=== PATIENT | male | born 1970 | race Caucasian/White ===

== ENCOUNTER 2020-05-29 12:06 | Inpatient (IN) | payer OTHER ==
[~2020-05-29] VITALS: Ht 162.6 cm; Wt 73.6 kg
--- NOTE | ~2020-05-29 | HEMODYNAMI ---
PATIENT:EVENS MASTERS MEDICAL RECORD: [id number] : 66 [facility] AD[facility] DATE: 05/30/20 Generatedon:06/01/20209:58 Patient name: EVENS MASTERS Patient #: [id number] SSN: [id number] : 1970 Date of study: 06/01/2020 Page: Of Hemodynamic Procedure Report Patient Data Patient Demographics Procedure consent was obtained First Name: EVENS Gender: Male Last Name: GUERRERO : 1970 Patient #: [id number] Age: 49 year(s) Race: SSN: [id number] Additional ID: [id number] Contact details [address]: [address] [place] [address] ln State: [place] City: [place] Zip code: [address] Past Medical History Allergies: No known allergies Admission Admission Data Admission Date: 05/30/2020 Admission Time: 8:49 Admit Source: Emergency department Room #: D.2119 Lab Results Lab Result Date: 06/01/2020 Lab Result Time: 5:25 Biochemistry Name Units Result Min Max BUN mg/dl 8 --(*---)-- 7 18 Creatinine mg/dl 1 --(--*-)-- 0.6 1.3 eGFR ml/min 84 -*(----)-- 90 120 NONAFRICAN CBC Name Units Result Min Max Hematocrit % 34.6 *-(----)-- 42 54 Hemoglobin g/dl 11.2 *-(----)-- 13.5 17.5 Procedure Procedure Types Cath Procedure Diagnostic Procedure Sedation Charges Moderate Sedation up to 15 minutes PCI Procedure Coronary Stent Coronary Stent Initial Hemochron ACT Test Procedure Description Procedure Date Procedure Date: 06/01/2020 Procedure Start Time: 9:32 Procedure End Time: 9:45 Procedure Staff Name Function Cielo Lizama RN Nurse Jim Haider RT Monitor Alka Nobles RT Scrub Lisha Posada RT Lead Care Manager Indio Sims MD Performing Physician Procedure Data Cath Procedure Fluoroscopy Diagnostic fluoroscopy Total fluoroscopy Time: 2 time: 2 min min Diagnostic fluoroscopy Total fluoroscopy dose: 184 dose: 184 mGy mGy Contrast Material Contrast Material Type Amount (ml) Isovue 300 39 Entry Location Entry Primary Successful Side Size Upsize Upsize Entry Closure Succes sful Closure Location (Fr) 1 (Fr) 2 (Fr) Remarks Device Remarks Femoral Left 6 Fr Exoseal artery Short Estimated blood loss: 10 ml Procedure Complications No complications Procedure Medications Medication Administration Route Dosage Oxygen etCO2 Nasal cannula 2 l/min Heparin Flush Bag added to field 2 bags (1000units/500ml NS) Lidocaine 2% added to field 20 0.9% NaCl I.V. 100 ml/hr Fentanyl I.V. 50 mcg Versed I.V. 1 mg Heparin Bolus I.V. 4000 units Hemodynamics Rest HGB: 11.2 (g/dl) Heart Rate: 75 (bpm) Snapshots Pre Cath Intra NCS Post Cath Vital Signs Time Heart Resp SPO2 etCO2 NIBP Rhythm Pain Sedation Rate (ipm) (%) (mmHg) (mmHg) Status Level (bpm) 9:21:24 76 18 100 17.2 129/79(99) NSR 0 (11) 10(A) , No pain 9:25:36 77 26 94 30.6 111/77(92) NSR 0 (11) 10(A) , No pain 9:29:50 79 26 96 21.6 109/71(89) NSR 0 (11) 10(A) , No pain 9:34:04 75 16 98 33.7 123/72(92) NSR 0 (11) 9(A) , No pain 9:38:18 82 21 93 35.9 116/69(88) NSR 0 (11) 9(A) , No pain 9:42:29 81 22 96 29.9 110/73(87) NSR 0 (11) 9(A) , No pain Medications Time Medication Route Dose Verified Delivered Reason Notes Effectiveness by by 9:02:28 Oxygen etCO2 2 Cielo Cielo for low 02 sats Nasal l/min Alda Lizama, cannula RN RN 9:02:37 Heparin Flush added 2 Cielo Cielo used for Bag to bags Alda Lizama, procedure (1000units/500ml field RN RN NS) 9:02:46 Lidocaine 2% added 20ml Cielo Cielo for local to vial Alda Lizama, anesthetic field RN RN 9:03:01 0.9% NaCl I.V. 100 Cielo Cielo Per physician ml/hr Alda Lizama, TAMMY MUNOZ 9:31:27 Fentanyl I.V. 50 Cielo Cielo for sedation mcg Alda Lizama RN RN 9:31:35 Versed I.V. 1 mg Cielo Cielo for sedation Alda Lizama, TAMMY MUNOZ 9:37:17 Heparin Bolus I.V. 4000 Cielo Cielo for verifi ed w units Alda Lizama, anticoagulation showell,rn RN oil gauger Log Time Note 8:34:37 Informed consent obtained and on chart 9:02:28 Oxygen 2 l/min etCO2 Nasal cannula was administered by Cielo Lizama RN; for low 02 sats; Verbal order read back and verified. 9:02:37 Heparin Flush Bag (1000units/500ml NS) 2 bags added to field was administered by Cielo Lizama RN; used for procedure; Verbal order read back and verified. 9:02:41 Diagnostic Cath Status : Urgent 9:02:46 Lidocaine 2% 20ml vial added to field was administered by Cielo Lizama RN; for local anesthetic; Verbal order read back and verified. 9:03:01 0.9% NaCl 100 ml/hr I.V. was administered by Cielo Lizama RN; Per physician; Verbal order read back and verified. 9:03:44 Lab Result : Hemoglobin 11.2 g/dl 9:03:44 Lab Result : Hematocrit 34.6 % 9:03:44 Lab Result : eGFR NONAFRICAN 84 ml/min 9:03:44 Lab Result : BUN 8 mg/dl 9:03:44 Lab Result : Creatinine 1 mg/dl 9:03:49 Admit Source: Emergency department 9:03:53 ACC Patient presents with Unstable Angina CCS Anginal Class 2--Slight limitation of ordinary activity. 9:03:57 Procedure Status PCI. 9:04:01 Alka Nobles RT(R) (CV) sent for patient. Start room use. 9:04:02 Time tracking: Regular hours (M-F 7:00 - 5:00) 9:04:06 Plan of Care:Hemodynamics will remain stable., Cardiac rhythm will remain stable., Comfort level will be maintained., Respiratory function will remain adequate., Patient/ family verbilizes understanding of procedure., Procedure tolerated without complication., Recovers from procedure without complications.. 9:12:55 Patient received from Med II to CCL 1 Alert and oriented. Tansferred to table in Supine position. 9:12:57 Warm blankets applied, and gardenia hugger turned on for patient comfort. 9:12:57 Correct patient and procedure confirmed by team. 9:12:58 ECG and BP/O2 sat monitors applied to patient. 9:13:07 H&P Date Dictated: 05/31/2020 Within 30 days and on chart., H&P Addendum completed by physician on day of procedure. (MUST COMPLETE FOR ALL OUTPATIENTS). 9:13:09 Pre-procedure instructions explained to patient. 9:13:09 Pre-op teaching completed and patient verbalized understanding. 9:13:10 Family in patients room. 9:13:12 Patient NPO since Midnight. 9:13:20 Patient allergic to No known allergies 9:13:25 Is patient on blood thinner?Yes 9:13:28 ACC The patient was administered the following blood thiners within the last 24 hours: ACCPlavix 9:14:17 Patient diabetic? No. 9:14:20 Previous problem with sedation/anesthesia? No ? 9:14:21 Snore? Yes 9:14:22 Sleep apnea? Yes 9:14:23 Deviated septum? No 9:14:23 Opens mouth fully? Yes 9:14:24 Sticks out tongue? Yes 9:14:26 Airway obstruction? No ? 9:14:27 Dentures? No ? 9:14:31 Pre procedure: left dorsailis pedis pulse 2+ Normal; easily identifiable; not easily obliterated 9:14:34 Patient pain scale 0/10 ?. 9:14:38 IV patent on arrival in right hand with 0.9% NaCl at KVO. 9:14:40 Lab results completed and on chart. 9:20:02 Stress Test: no; N/A ? 9:20:04 Alarms reviewed by R. N. 9:20:04 Sharps counted by scrub and verified by R.N. 9:20:10 Left groin area was prepped with chlora-prep and draped in sterile fashion 9:20:18 Vital chart was started 9:20:19 Full Disclosure recording started 9:20:20 Baseline sample Acquired. 9:20:23 Rhythm: sinus rhythm 9:20:29 Is the patient allergic to Iodine/contrast media? No. 9:20:32 Was the patient premedicated? N/A 9:20:35 If diabetic: On Metformin? N/A 9:20:42 Use device set Femoral Dx 9:20:43 ACIST Syringe (20499) opened to sterile field. 9:20:44 Bag Decanter (2002S) opened to sterile field. 9:20:45 Medline Cath Pack ([id number]) opened to sterile field. 9:20:46 ACIST Hand Control (33233) opened to sterile field. 9:20:46 ACIST Manifold (60267) opened to sterile field. 9:20:48 EMERALD Guide Wire (371-252) opened to sterile field. 9:30:01 Physician arrived 9:30:01 --------ALL STOP TIME OUT------ 9:30:02 Final Timeout: patient, procedure, and site verified with staff and physician. All members of the team are in agreement. 9:30:03 Left groin site verified by team. 9:30:05 Fire Safety Assessment: A--An alcohol-based skin anteseptic being used preoperatively., C--Open oxygen or nitrous oxide is being used., D--An ESU, laser, or fiber-optic light is being used. 9:30:10 Physical assessment completed. ASA score P 2 - A patient with mild systemic disease as per Indio Sims MD. 9:30:21 2) 60-89 Mildly reduced kidney function, and other findings (as for stage 1) point to kidney disease. 9:30:26 Maximum allowable contrast dose (3.7 X eGFR X 0.75)246 ml. 9:30:29 Sedation plan: IV Moderate Sedation Medication:Versed, Fentanyl 9:31:27 Fentanyl 50 mcg I.V. was administered by Cielo Lizama RN; for sedation; Verbal order read back and verified. 9:31:35 Versed 1 mg I.V. was administered by Cielo Lizama RN; for sedation; Verbal order read back and verified. 9:32:43 Procedure started. 9:32:48 Local anesthetic to left femerol artery with Lidocaine 2% by Indio Sims MD.INITIAL ACCESS ONLY 9:33:08 A 6 Fr Short sheath was inserted into the Left Femoral artery 9:34:06 Asahi Minamo 300cm wire opened to sterile field. 9:34:06 INFLATOR Merit BasixCompak (HH2358) opened to sterile field. 9:34:07 SHEATH 6FR [place] (AVU247) opened to sterile field. 9:34:08 Zero performed for pressure channel P1 9:34:11 Zero performed for pressure channel P1 9:34:21 GUIDE 6FR XBLAD 3.5 catheter ([id number]) opened to sterile field. 9:34:32 6 Fr xblad 3.5 guide catheter was inserted over the wire 9:34:54 Pre PCI Site: [place] pLAD has 80% stenosis. 9:34:57 ACC Pre-intervention MARYURI Flow is 3. 9:36:45 minamo wire advanced. 9:37:17 Heparin Bolus 4000 units I.V. was administered by Cielo Lizama RN; for anticoagulation; verified nigel licea rn Verbal order read back and verified. 9:37:32 Wire advanced across lesion. 9:39:52 Place stent Inflation Number: 1 A COLE RX 3.5 x 18 stent ([id number]) was prepped and advanced across the Prox LAD . The stent was deployed at 14 ANGIE for 0:10 (min:sec) . 9:40:19 Post PCI Site: Zuni pLAD has 0% stenosis. 9:40:35 ACC Post-intervention MARYURI Flow is 3. 9:41:14 Stent catheter was removed intact over wire. 9:41:15 Wire removed. 9:41:15 Guide catheter removed. 9:41:21 EXOSEAL 6Fr (EX600) opened to sterile field. 9:41:28 Sheath removed intact; hemostasis achieved with Exoseal to the Left Femoral artery. 9:41:30 Procedure ended.(Physican Out) 9:43:22 Fluoroscopy time 02.00 minutes. 9:43:25 Flurop Dose total: 184 9:43:25 Fluoroscopy dose: 184 mGy 9:43:29 Dose Area Product 7270 mGy/cm. 9:43:32 Contrast amount:Isovue 300 39ml. 9:43:35 Maximum allowable dose exceeded? No. 9:43:35 Sharps counted by scrub and verified by R.N. 9:43:37 Insertion/operative site no bleeding no hematoma. 9:43:39 Post-op/insertion site Left Femoral artery dressed using a 4 x 4 and Tegaderm. 9:43:43 Post left femerol artery:stable, soft, clean and dry 9:43:44 Post Procedure Pulses reassessed and unchanged 9:43:46 Post-procedure physical assessment completed. ASA score P 2 - A patient with mild systemic disease as per Indio Sims MD. 9:43:57 Post procedure rhythm: unchanged. 9:44:00 Estimated blood loss: 10 ml 9:44:01 Post procedure instruction explained to patient.Patient verbalizes understanding. 9:44:01 Patient needs reinforcement of post procedure teaching. 9:44:20 Procedure type changed to Cath procedure, Diagnostic procedure, Sedation Charges, Moderate Sedation up to 15 minutes, PCI procedure, Coronary Stent, Coronary Stent Initial, Hemochron ACT Test 9:45:22 Procedure and supply charges have been captured, reviewed, submitted and are correct. 9:45:24 Procedure Complication : No complications 9:45:26 Vital chart was stopped 9:45:29 Operative report dictated upon procedure completion. 9:45:30 See physician's report for complete and final results. 9:45:32 Report given to PCU. 9:45:35 Patient transfered to PCU with Stretcher. 9:45:36 Procedure ended. 9:45:36 Full Disclosure recording stopped 9:45:43 ACC-PCI Only Patient was given prescriptions, or instructed by Indio Sims MD to start/continue the following medications upon discharge: Aspirin, Plavix 9:45:46 End room use (Document Last) 9:47:44 Wire redirected to ?. 9:49:12 ACT drawn and resulted at 194 seconds. (normal therapeutic range 180-240 seconds). 9:57:44 Jim Haider RT(R) was relieved by Jim Haider RT(R) as monitoring person 9:58:33 Jim Haider RT(R) was relieved by Jim Haider RT(R) as monitoring person Intervention Summary Intervention Notes Time ActionType Lesion and Equipment Used Action# Pressure Duration Attributes 9:39:52 Place stent Prox LAD COLE RX 3.5 x 1 14 00:10 18 stent ([id number]) Device Usage Item Name Manufacture Quantity Catalog Hospital Part Current [facility] Lot# / Number Charge Number Stock Stock Serial# Code ACIST Syringe Acist 1 [id number] 733682 512129 20 (18315) [employer] Bag Decanter Microtek 1 2001S [id number] 93341 555222 5 (2001S) Medical Inc. Medline Cath Medline 1 [id number] 881043 03241 072597 5 Pack ([id number]) ACIST Hand Acist 1 85697 430770 034135 551746 5 Control Medical (50764) Systems Inc ACIST Manifold Acist 1 49699 795440 256126 186550 5 (47612) [employer] EMERALD Guide Cardinal 1 502-455 490040 225057 953143 5 Wire (502-455) [facility] Intecc 1 [id number] 115486 0429055 666867 0 300cm wire INFLATOR Merit Merit 1 [id number] 046476 342124 106430 15 Medtric [employer] Medical ([id number]) SHEATH 6FR Terumo 1 [id number] 193922 783529 453219 40 [place] (WNV686) GUIDE 6FR Cardinal 1 [id number] 233505 314619 927543 10 XBLAD 3.5 Health catheter ([id number]) COLE RX 3.5 x Medtronic 1 [id number] 035887 0668307 939794 5 [id number] 18 stent ([id number]) EXOSEAL 6Fr Cardinal 1 EX600 674992 336064 803087 10 (EX600) Health Signature Audit [place] Stage Time Signature Unsigned Intra-Procedure 06/01/2020 Jim Haider 9:57:25 AM RT(R) Intra-Procedure 06/01/2020 Cielo Lizama, 9:58:27 AM RN Intra-Procedure 06/01/2020 Indio Louise 9:58:57 AM Augusto JURADO [facility] [address] [facility] [place] [address]
--- NOTE | ~2020-05-29 | HEMODYNAMI ---
PATIENT:EVENS MASTERS MEDICAL RECORD: [id number] : 66 LOCATION:[facility] D.2119 ADMISSION DATE: 05/29/20 Generatedon:05/30/20203:14 Patient name: EVENS MASTERS Patient #: [id number] SSN: [id number] : 1970 Date of study: 05/30/2020 Page: Of Hemodynamic Procedure Report Patient Data Patient Demographics Procedure consent was obtained First Name: EVENS Gender: Male Last Name: GUERRERO : 1970 Patient #: [id number] Age: 49 year(s) Race: SSN: [id number] Additional ID: [id number] Contact details [address]: [address] [place] [address] ln State: [place] City: [place] Zip code: [address] Admission Admission Data Admission Date: 05/29/2020 Admission Time: 15:05 Room #: D.2119 Lab Results Lab Result Date: 05/30/2020 Lab Result Time: 0:00 Biochemistry Name Units Result Min Max BUN mg/dl 13 --(--*-)-- 7 18 CK-MB ng/ml 103.8 --(----)-* 0 3.6 Creatinine mg/dl 1.2 --(---*)-- 0.6 1.3 eGFR ml/min 67.35434 *-(----)-- 90 120 NONAFRICAN Troponin l ng/ml 10.894 --(----)-* 0 0.06 CBC Name Units Result Min Max Hematocrit % 32.4 *-(----)-- 42 54 Hemoglobin g/dl 10.6 *-(----)-- 13.5 17.5 Procedure Procedure Types Cath Procedure Diagnostic Procedure LHC Coronaries only PCI Procedure Coronary Stent Coronary Stent Initial Hemochron ACT Test Procedure Description Procedure Date Procedure Date: 05/30/2020 Procedure Start Time: 2:35 Procedure End Time: 3:10 Procedure Staff Name Function Taylor Bunch RT Monitor Buffie Yu RN Nurse Renny Erickson MD Performing Physician Maru Yeh RT Scrub Procedure Data Cath Procedure Fluoroscopy Diagnostic fluoroscopy Total fluoroscopy Time: 6.1 time: 6.1 min min Diagnostic fluoroscopy Total fluoroscopy dose: dose: 99520 mGy 68586 mGy Contrast Material Contrast Material Type Amount (ml) Isovue 300 86 Entry Location Entry Primary Successful Side Size Upsize Upsize Entry Closure Succes sful Closure Location (Fr) 1 (Fr) 2 (Fr) Remarks Device Remarks Femoral Right 6 Fr artery Short Femoral Right 6 Fr Exoseal vein Short Estimated blood loss: 5 ml Procedure Complications No complications Procedure Medications Medication Administration Route Dosage Dopamine I.V. drip 7.5 mcg/kg/min (400mg/250ml D5W) Oxygen etCO2 Nasal cannula 2 l/min Lidocaine 2% added to field 20 0.9% NaCl I.V. bolus 250 ml Heparin Flush Bag added to field 2 bags (1000units/500ml NS) Heparin Bolus I.V. 7000 units Dopamine I.V. drip 5 mcg/kg/min (400mg/250ml D5W) Nitroglycerin IC/IA I.C. 50 mcg Dopamine I.V. drip 2.5 mcg/kg/min (400mg/250ml D5W) Plavix P.O. 600 mg Dopamine I.V. drip (400mg/250ml D5W) Hemodynamics Rest HGB: 10.6 (g/dl) Heart Rate: 65 (bpm) Snapshots Pre Cath Intra NCS Post Cath Vital Signs Time Heart Resp SPO2 etCO2 NIBP (mmHg) Rhythm Pain Status Sedation Rate (ipm) (%) (mmHg) Level (bpm) 2:29:20 55 12 100 23.4 87/54(73) NSR 4 (11) , 10(A) Distressing 2:33:32 55 13 100 18.1 85/50(76) NSR 4 (11) , 10(A) Distressing 2:37:40 57 13 100 22.6 86/55(76) NSR 4 (11) , 10(A) Distressing 2:41:48 84 14 100 21.8 101/61(79) NSR 4 (11) , 10(A) Distressing 2:46:51 74 14 100 23.3 163/82(123) NSR 4 (11) , 10(A) Distressing 2:51:11 82 18 100 14.3 141/79(99) NSR 4 (11) , 10(A) Distressing 2:55:23 82 17 100 24.1 112/67(82) NSR 0 (11) , No 10(A) pain 2:59:35 85 15 100 21.1 128/75(97) NSR 0 (11) , No 10(A) pain 3:03:53 84 13 100 23.3 133/74(101) NSR 0 (11) , No 10(A) pain 3:08:13 84 12 100 18.8 135/69(105) NSR 0 (11) , No 10(A) pain Medications Time Medication Route Dose Verified Delivered Reason Notes Effectiveness by by 2:33:42 Dopamine I.V. 7.5 Renny Buffie For hypotension (400mg/250ml drip mcg/kg/min Dre Yu RN D5W) 2:34:05 Oxygen etCO2 2 l/min Renny Buffie used for Nasal Der Yu RN procedure cannula 2:34:11 Lidocaine 2% added 20ml vial Renny Renny for local to Dre Erickson MD anesthetic field 2:34:19 0.9% NaCl I.V. 250 ml Renny Buffie Per physician bolus Dre Yu RN 2:36:03 Heparin Flush added 2 bags Renny Renny used for Bag to Dre Erickson MD procedure (1000units/500ml field NS) 2:45:20 Heparin Bolus I.V. 7000 units Renny Buffie for verified Dre Yu RN anticoagulation with dr erickson 2:48:57 Dopamine I.V. 5 mcg/kg/min Renny Buffie For hypotension (400mg/250ml drip Dre Yu RN D5W) 2:53:49 Nitroglycerin I.C. 50 mcg Renny Renny for IC/IA Dre Erickson MD vasodilation 3:01:52 Dopamine I.V. 2.5 Renny Buffie For hypotension (400mg/250ml drip mcg/kg/min Dre Yu RN D5W) 3:10:04 Plavix P.O. 600 mg Renny Buffie for Dre Yu RN antiplatelet therapy 3:11:08 Dopamine I.V. discontinued Renny Buffie For hypotension (400mg/250ml drip Dre Yu RN D5W) Procedure Log Time Note 2:15:21 Taylor Julio C RT(R) sent for patient. Start room use. 2:18:37 Informed consent obtained and on chart 2:18:47 Diagnostic Cath Status : Urgent 2:19:15 ACC Patient presents with STEMI CCS Anginal Class 2--Slight limitation of ordinary activity. 2:19:18 Procedure Status Urgent Heart Cath (IP). 2:19:29 Time tracking: Call back (After hours or weekends) 2:19:34 Plan of Care:Hemodynamics will remain stable., Cardiac rhythm will remain stable., Comfort level will be maintained., Respiratory function will remain adequate., Patient/ family verbilizes understanding of procedure., Procedure tolerated without complication., Recovers from procedure without complications.. 2:19:44 H&P Date Dictated: 05/29/2020 Within 30 days and on chart.. 2:19:46 Pre-op teaching completed and patient verbalized understanding. 2:19:46 Pre-procedure instructions explained to patient. 2:19:48 Family unavailable. 2:19:49 Patient NPO since Midnight. 2:20:27 Lab Result : eGFR NONAFRICAN 67.87053 ml/min 2:20:27 Lab Result : Hemoglobin 10.6 g/dl 2:20:27 Lab Result : Hematocrit 32.4 % 2:20:27 Lab Result : Troponin l 10.894 ng/ml 2:20:27 Lab Result : BUN 13 mg/dl 2:20:27 Lab Result : Creatinine 1.2 mg/dl 2:20:27 Lab Result : CK-MB 103.8 ng/ml 2:20:31 Lab results completed and on chart. 2:20:34 Stress Test: no; N/A ? 2:20:39 Risk of Mortality: 1.8 2:20:42 Risk of blood transfusion: 12.6 2:20:45 Risk of ROSALIA: 7.1 2:20:48 Right groin area was prepped with chlora-prep and draped in sterile fashion 2:25:19 Patient received from Med II to CCL 1 Alert and oriented. Tansferred to table in Supine position. 2:25:21 ECG and BP/O2 sat monitors applied to patient. 2:25:21 Correct patient and procedure confirmed by team. 2:25:21 Warm blankets applied, and gardenia hugger turned on for patient comfort. 2:28:05 Vital chart was started 2:31:10 Is the patient allergic to Iodine/contrast media? No. 2:31:11 Was the patient premedicated? Yes 2:31:15 Is patient on blood thinner?Yes 2:31:16 Patient diabetic? No. 2:31:29 Is patient on blood thinner?Yes 2:31:35 ACC The patient was administered the following blood thiners within the last 24 hours: ACCLovenox 2:31:40 Previous problem with sedation/anesthesia? No ? 2:31:42 Snore? Yes 2:31:44 Sleep apnea? Yes 2:31:47 Deviated septum? No 2:31:49 Opens mouth fully? Yes 2:31:50 Sticks out tongue? Yes 2:31:52 Airway obstruction? No ? 2:31:55 Dentures? No ? 2:31:58 Pre procedure: right dorsailis pedis pulse 2+ Normal; easily identifiable; not easily obliterated 2:32:00 Pre procedure: left dorsailis pedis pulse 2+ Normal; easily identifiable; not easily obliterated 2:32:06 Patient pain scale 5/10 ?. 2:32:55 IV patent on arrival in left forearm with 0.9% NaCl at KVO. 2:33:01 Alarms reviewed by R. N. 2:33:02 Sharps counted by scrub and verified by R.N. 2:33:03 Final Timeout: patient, procedure, and site verified with staff and physician. All members of the team are in agreement. 2:33:03 --------ALL STOP TIME OUT------ 2:33:03 Physician arrived 2:33:06 Right groin site verified by team. 2:33:10 Fire Safety Assessment: A--An alcohol-based skin anteseptic being used preoperatively., C--Open oxygen or nitrous oxide is being used., D--An ESU, laser, or fiber-optic light is being used. 2:33:13 Physical assessment completed. ASA score P 2 - A patient with mild systemic disease as per Renny Erickson MD. 2:33:31 IV Extension Set opened to sterile field. 2:33:42 Dopamine (400mg/250ml D5W) 7.5 mcg/kg/min I.V. drip was administered by Osiel Yu RN; For hypotension; Verbal order read back and verified. 2:34:05 Oxygen 2 l/min etCO2 Nasal cannula was administered by Osiel Yu RN; used for procedure; Verbal order read back and verified. 2:34:11 Lidocaine 2% 20ml vial added to field was administered by Renny Erickson MD; for local anesthetic; Verbal order read back and verified. 2:34:19 Sedation plan: IV Moderate Sedation Medication:Versed, Fentanyl 2:34:19 0.9% NaCl 250 ml I.V. bolus was administered by Osiel Yu RN; Per physician; Verbal order read back and verified. 2:34:28 2) 60-89 Mildly reduced kidney function, and other findings (as for stage 1) point to kidney disease. 2:34:48 Maximum allowable contrast dose (3.7 X eGFR X 0.75)189 ml. 2:34:54 Use device set CATH PACK 2:34:57 ACIST Syringe (06033) opened to sterile field. 2:34:58 ACIST Manifold (89435) opened to sterile field. 2:34:58 ACIST Hand Control (95900) opened to sterile field. 2:34:59 Bag Decanter (2001S) opened to sterile field. 2:34:59 Medline Cath Pack ([id number]) opened to sterile field. 2:35:00 EMERALD Guide Wire (198-794) opened to sterile field. 2:35:14 Full Disclosure recording started 2:35:14 Procedure started. 2:35:17 Local anesthetic to right femoral artery with Lidocaine 2% by Renny Erickson MD.INITIAL ACCESS ONLY 2:35:26 A 6 Fr Short sheath was inserted into the Right Femoral artery 2:35:41 DIAGNOSTIC Multipack 5Fr catheter set ([id number]) opened to sterile field. 2:36:03 Heparin Flush Bag (1000units/500ml NS) 2 bags added to field was administered by Renny Erickson MD; used for procedure; Verbal order read back and verified. 2:38:18 A 6 Fr Short sheath was inserted into the Right Femoral vein 2:38:50 5 Fr JL 4 guide catheter was inserted over the wire 2:39:18 Baseline sample Acquired. 2:39:26 Zero performed for pressure channel P1 2:40:15 LCA angiography performed. 2:40:19 Injector settings: Ml/sec: 3, Volume: 6, 2:41:24 Catheter removed. 2:41:34 5 Fr 3DRC guide catheter was inserted over the wire 2:42:43 RCA angiography performed. 2:42:45 Injector settings: Ml/sec: 3, Volume: 6, 2:42:51 Catheter removed. 2:43:27 TUBING High Pressure Extension Tubing (Dre) ([id number]) opened to sterile field. 2:43:28 GUIDE 6FR JR 4.0 catheter (SU0CO42) opened to sterile field. 2:43:29 BMW 300cm [place] 2 J wire ([id number]) opened to sterile field. 2:43:30 INFLATOR Merit BasixCompak (FY5767) opened to sterile field. 2:45:20 Heparin Bolus 7000 units I.V. was administered by Osiel Yu RN; for anticoagulation; verified with dr erickson Verbal order read back and verified. 2:45:29 5Fr J Tip Temporary Pacing Catheter ([id number]) opened to sterile field. 2:45:30 Pre PCI Site: [place] mRCA has 100% stenosis. 2:45:30 ACC Pre-intervention MARYURI Flow is 2. 2:46:40 Temporary pacer inserted 2:48:57 Dopamine (400mg/250ml D5W) 5 mcg/kg/min I.V. drip was administered by Osiel Yu RN; For hypotension; Verbal order read back and verified. 2:51:07 Inflate balloon Inflation number: 1 A EUPHORA 2.0 x 20 Balloon ([id number]) was prepped and advanced across the Mid RCA 100, then inflated to 12 ANGIE for 0:10 (min:sec) 0. 2:53:49 Nitroglycerin IC/IA 50 mcg I.C. was administered by Renny Erickson MD; for vasodilation; Verbal order read back and verified. 2:56:04 Balloon removed over the wire. 2:58:20 Place stent Inflation Number: 2 A COLE RX 3.0 x 30 stent ([id number]) was prepped and advanced across the Mid RCA 100. The stent was deployed at 13 ANGIE for 0:30 (min:sec) 0. 2:59:49 Inflation number: 3 The stent balloon was then re-inflated across the Mid RCA 0 to 14 ANGIE for 0:10 (min:sec) . 3:01:15 Stent catheter was removed intact over wire. 3:01:21 Wire removed. 3:01:22 Guide catheter removed. 3:01:50 Temporary pacer removed 3:01:52 Dopamine (400mg/250ml D5W) 2.5 mcg/kg/min I.V. drip was administered by Osiel Yu RN; For hypotension; Verbal order read back and verified. 3:02:05 Post PCI Site: [place] mRCA has 0% stenosis. 3:02:08 ACC Post-intervention MARYURI Flow is 3. 3:02:24 EXOSEAL 6Fr (EX600) opened to sterile field. 3:02:34 Sheath removed intact; hemostasis achieved with Exoseal to the Right Femoral vein. 3:02:36 Procedure ended.(Physican Out) 3:05:28 Fluoroscopy time 06.10 minutes. 3:05:34 Fluoroscopy dose: 87127 mGy 3:05:34 Flurop Dose total: 55335 3:06:33 Dose Area Product 85034 mGy/cm. 3:07:19 Contrast amount:Isovue 300 86ml. 3:07:22 Sharps counted by scrub and verified by R.N. 3:07:22 Maximum allowable dose exceeded? No. 3:07:23 Insertion/operative site no bleeding no hematoma. 3:07:26 Post-op/insertion site Right Femoral artery dressed using a 4 x 4 and Tegaderm. 3:08:29 Post Procedure Pulses reassessed and unchanged 3:08:33 Post procedure rhythm: unchanged. 3:08:35 Estimated blood loss: 5 ml 3:08:37 Patient needs reinforcement of post procedure teaching. 3:08:37 Post procedure instruction explained to patient.Patient verbalizes understanding. 3:09:39 Procedure type changed to Cath procedure, Diagnostic procedure, LHC, Coronaries only, PCI procedure, Coronary Stent, Coronary Stent Initial, Hemochron ACT Test 3:09:40 Procedure and supply charges have been captured, reviewed, submitted and are correct. 3:09:44 Procedure Complication : No complications 3:09:47 Vital chart was stopped 3:09:50 [facility] Findings: MVD- PCI performed (see procedure note) 3:09:52 Operative report dictated upon procedure completion. 3:09:53 See physician's report for complete and final results. 3:10:04 Plavix 600 mg P.O. was administered by Osiel Yu RN; for antiplatelet therapy; Verbal order read back and verified. 3:10:17 Report given to [facility] II. 3:10:20 Patient transfered to Med II with Stretcher. 3::21 Full Disclosure recording stopped 3::21 Procedure ended. 3:10:31 ACC-PCI Only Patient was given prescriptions, or instructed by Renny Erickson MD to start/continue the following medications upon discharge: Plavix 3:10:33 End room use (Document Last) 3:10:37 ACT drawn and resulted at 304 seconds. (normal therapeutic range 180-240 seconds). 3:11:08 Dopamine (400mg/250ml D5W) discontinued I.V. drip was administered by Osiel Yu RN; For hypotension; Verbal order read back and verified. 3:11:48 End room use (Document Last) 3:12:04 End room use (Document Last) Intervention Summary Intervention Notes Time ActionType Lesion and Equipment Used Action# Pressure Duration Attributes 2:51:07 Inflate Mid RCA EUPHORA 2.0 x 1 12 00:10 balloon 20 Balloon ([id number]) 2:58:20 Place stent Mid RCA COLE RX 3.0 x 2 13 00:30 30 stent ([id number]) 2:59:49 Reinflate Mid RCA COLE RX 3.0 x 3 14 00:10 stent 30 stent balloon ([id number]) Device Usage Item Name Manufacture Quantity Catalog Hospital Part Current [facility] Lot# / Number Charge Number Stock Stock Serial# Code IV Extension Hospira 1 77390-87 339586 00897 159277 5 Set ACIST Syringe Acist 1 61434 123413 791716 994269 20 (17118) Medical Systems Inc ACIST Hand Acist 1 69516 081465 323453 313384 5 Control Medical (87181) Systems Inc ACIST Manifold Acist 1 68586 110421 004753 308891 5 (37912) Medical Systems Inc Medline Cath Medline 1 [id number] 788342 28347 716883 5 Pack ([id number]) Bag Decanter Microtek 1 2001S 441941 02088 659794 5 () Medical Inc. EMERALD Guide Cardinal 1 502-455 976965 214395 882867 5 Wire (502-455) Health DIAGNOSTIC Cardinal 1 TX4457 287118 61935 864502 30 Multipack 5Fr Health catheter set (VG8428) TUBING High Merit 1 SS6214N 772189 30218 621357 10 Pressure Medical Extension Tubing (Erickson) (CV2918N) GUIDE 6FR JR Medtronic 1 TD8YE34 834521 52375 547769 1 4.0 catheter (HT4WB14) BMW 300cm Mckenzie 1 [id number] 084789 929195 667475 5 [place] 2 J Vascular wire (7836788E) INFLATOR Merit Merit 1 KA2843 319046 919269 136767 15 BasixMuchasasdTokalas Medical (QY9045) 5Fr J Tip Becerra 1 [id number] 027092 15736 447957 2 Temporary Lifesciences Pacing Catheter (U92340Z6) EUPHORA 2.0 x Medtronic 1 [id number] 237507 374036 963788 5 [id number] 20 Balloon (VFM8689G) COLE RX 3.0 x Medtronic 1 [id number] 259891 7780870 456470 5 [id number] 30 stent ([id number]) EXOSEAL 6Fr Cardinal 1 EX600 518530 872339 839904 10 (EX600) Health Signature Audit Roberta Stage Time Signature Unsigned Intra-Procedure 05/30/2020 Taylor Bunch 3:11:48 AM RT(R) Intra-Procedure 05/30/2020 Osiel Yu RN 3:12:04 AM Intra-Procedure 05/30/2020 Renny Erickson MD 3:12:27 AM 05/30/2020 3:13:24 AM Intra-Procedure 05/30/2020 Renny Erickson MD 3:14:49 AM [facility] [address] [place] [address]
[2020-05-29] MEDS ORDERED: PROTONIX20 MG PO (12:13)
[2020-05-29] MEDS ORDERED: COZAAR50 MG PO (12:13)
[2020-05-29 12:18] VITALS: BP 115/68
[2020-05-29 12:28] LABS: BASOPHILS 0.3 % (0-2); EOSINOPHILS 0.3 % (0-7); HEMATOCRIT 35.3 % (42.0-54.0); HEMOGLOBIN 12.4 g/dL (13.5-17.5); IMMATURE GRANULOCYTES 0.3 % (0-5); LYMPHOCYTES 13.8 % (15-50); MCH 30.3 pg (26.0-34.0); MCHC 35.1 g/dL (31.0-37.0); MCV 86.3 fL (80.0-100.0); MEAN PLATELET VOLUME 9.5 fL (7.4-10.4); MONOCYTES 6.7 % (2-11); NEUTROPHILS 78.6 % (40-80); PLATELET COUNT 276 10x3/uL (130-400); RBC 4.09 10x6/uL (4.20-6.10); RDW 12.8 % (11.5-14.5); WBC 11.5 10x3/uL (4.8-10.8)
--- NOTE | 2020-05-29 12:30 | NUR ---
PT TRANSPORTED TO CT AT THIS TIME.
[2020-05-29 12:35] LABS: APTT 22.4 SECONDS (22.8-39.4); INR 0.97 (0.85-1.17); PROTIME 12.8 SECONDS (11.6-15.0)
[2020-05-29 12:42] LABS: CALC OSMOLALITY 270 mosm/kg (275-300); CALCIUM 8.8 mg/dL (8.5-10.1); CARBON DIOXIDE 20.1 mmol/L (21.0-32.0); CHLORIDE - SERUM 101 mmol/L (98-107); CREATININE - SERUM 1.7 mg/dL (0.6-1.3); GLUCOSE 137 mg/dL (74-106); POTASSIUM - SERUM 4.9 mmol/L (3.5-5.1); SODIUM 134 mmol/L (136-145); UREA NITROGEN 16 mg/dL (7-18); eGFR NON AFRICAN AMERICAN 45 mL/min (90-120)
[2020-05-29 13:06] LABS: ALBUMIN 3.3 g/dL (3.4-5.0); ALKALINE PHOSPHATASE 83 U/L (30-120); ALT (SGPT) 28 U/L (10-68); BILIRUBIN - TOTAL 0.38 mg/dL (0.2-1.3); CKMB 2.5 U/L (0.0-3.6); CREATINE KINASE 131 UL (21-232); MAGNESIUM - SERUM 1.7 mg/dL (1.8-2.4); PROTEIN - SERUM 6.8 g/dL (6.4-8.2)
[2020-05-29 13:07] LABS: TROPONIN-I 0.215 ng/mL (0.000-0.060)
--- NOTE | 2020-05-29 14:00 | NUR ---
pt laying in bed nodistress noted. color wnl for race. respirations are even and unlabored. vss. will continue to monitor.
[2020-05-29 15:01] VITALS: BP 103/68
--- NOTE | 2020-05-29 15:04 | NUR ---
called report to micheal tobias at this time.
--- NOTE | 2020-05-29 15:35 | NUR ---
covid swab obtained and sent to lab
[2020-05-29 16:00] VITALS: BP 100/50; BP 70/36
[2020-05-29] MEDS ORDERED: PROTONIX40 MG PO (16:16)
[2020-05-29] MEDS ORDERED: BAYER CHEWABLE81 MG PO (16:16)
[2020-05-29 17:31] VITALS: Ht 162.6 cm; Wt 73.6 kg
[2020-05-29] MEDS ORDERED: CRESTOR40 MG PO (17:35)
[2020-05-29 20:07] LABS: CKMB 62.5 U/L (0.0-3.6)
[2020-05-29 20:08] LABS: CREATINE KINASE 495 UL (21-232); TROPONIN-I 3.503 ng/mL (0.000-0.060)
[2020-05-29 21:45] VITALS: BP 78/38
--- NOTE | 2020-05-29 22:00 | NUR ---
SUMMARY: PT'S INITIAL BP WAS LOW AT 83/40. HE WAS EXPERIENCING CHEST PRESSURE/TIGHTNESS @ 2030. TROPONIN RESULTS HAVE INCREASED FROM 0.215 TO 3.503. PAGE/RETURN CALL FROM DR BRUNO. REPORTED ABOVE. DR BRUNO NOW ON FLOOR TO SEE PATIENT. ORDERS RECIEVED AND IMPLEMENTED. IVF 250 NS BOLUS STARTED AND THEN IVF NS @ 100ML/HR INFUSING TO LEFT A/C. CONTINUE TO MONITOR. REMAINS SR PER TELEMETRY.
[2020-05-30] VITALS (13 sets, daily range): BP systolic 72–129; BP diastolic 40–62
[2020-05-30 01:08] LABS: BASOPHILS 0.4 % (0-2); EOSINOPHILS 1.2 % (0-7); HEMATOCRIT 32.4 % (42.0-54.0); HEMOGLOBIN 10.6 g/dL (13.5-17.5); IMMATURE GRANULOCYTES 0.1 % (0-5); LYMPHOCYTES 24.4 % (15-50); MCH 28.5 pg (26.0-34.0); MCHC 32.7 g/dL (31.0-37.0); MCV 87.1 fL (80.0-100.0); MEAN PLATELET VOLUME 9.8 fL (7.4-10.4); MONOCYTES 9.5 % (2-11); NEUTROPHILS 64.4 % (40-80); PLATELET COUNT 245 10x3/uL (130-400); RBC 3.72 10x6/uL (4.20-6.10)
[2020-05-30 01:11] LABS: WBC 8.5 10x3/uL (4.8-10.8)
[2020-05-30 01:33] LABS: INR 1.03 (0.85-1.17); PROTIME 13.5 SECONDS (11.6-15.0)
[2020-05-30 01:34] LABS: ALBUMIN 2.8 g/dL (3.4-5.0); ALKALINE PHOSPHATASE 67 U/L (30-120); ALT (SGPT) 27 U/L (10-68); BILIRUBIN - TOTAL 0.24 mg/dL (0.2-1.3); CALC OSMOLALITY 263 mosm/kg (275-300); CALCIUM 7.5 mg/dL (8.5-10.1); CARBON DIOXIDE 21.8 mmol/L (21.0-32.0); CHLORIDE - SERUM 102 mmol/L (98-107); CKMB 103.8 U/L (0.0-3.6); GLUCOSE 113 mg/dL (74-106); PROTEIN - SERUM 5.9 g/dL (6.4-8.2); SODIUM 131 mmol/L (136-145); UREA NITROGEN 13 mg/dL (7-18)
[2020-05-30 01:37] LABS: CREATINE KINASE 833 UL (21-232); CREATININE - SERUM 1.2 mg/dL (0.6-1.3); POTASSIUM - SERUM 3.4 mmol/L (3.5-5.1); eGFR NON AFRICAN AMERICAN 68 mL/min (90-120)
[2020-05-30 01:38] LABS: TROPONIN-I 10.894 ng/mL (0.000-0.060)
[2020-05-30 01:42] LABS: APTT 31.6 SECONDS (22.8-39.4)
--- NOTE | 2020-05-30 02:23 | NUR ---
SUMMARY: HAVE BEEN MONITORING PT'S BP WHILE IVF IS INFUSING AND IVF BOLUS HAD COMPLETED. BP AT 0000 IS 83/40 AND BP AT 0100 IS 80/40. SR 62 PER TELEMETRY. 3RD TROPONIN RESULTS BACK AND CONTINUED ELEVATION NOTED. TROPONIN NOW 10.894 ASSESSED PT AND HE STATES HE IS FEELING PRESSURE/DISCOMFORT IN HIS CHEST AND LIGHTHEADED. BP TAKEN MANUALLY 58/PALP. PAGE/RETURN CALL FROM DR BRUNO. NOTIFIED OF ABOVE. ORDERS RECIEVED TO GET PT READY FOR HEART CATH, IS CURRENTLY IN THE BUILDING. PT AND SPOUSE NOTIFIED. CONSENTS SIGNED. PT READIED FOR HEART CATH. CATH TEAM HERE AND PT TAKEN TO CARDIOTHORACIC SURGEON BY BED AT 0225. REMAINING IN ROOM FOR REPORTS.
[2020-05-30 02:36] LABS: CHOL - HDL RATIO 3.9 ratio (2.3-4.9); LDL-HDL RATIO 1.9 ratio (1.5-3.5)
--- NOTE | 2020-05-30 03:55 | NUR ---
PT RETURNED FROM PROGRAM HOST AT 0340. ALERT/ORIENTED. DRESSING TO RIGHT GROIN C/D/I WITH NO BLEEDING OR SWELLING NOTED. BP 99/62. PT FEELING MUCH BETTER/SMILING AND INTERACTING WITH HIS FAMILY. AND SONS AT BEDSIDE. POST OP VITAL SIGNS BEING MONITORED. TELEMETRY 78/SR AT THIS TIME.
--- NOTE | 2020-05-30 07:54 | NUR ---
RT GROIN DRESSING CDI, NO S/S OF BLEEDING OR HEMATOMA. BEDREST IS UP. PT A/O X4, RESP EVEN AND NONLABORED ON RA. LT AC INFUSING NS AT 100CC/HR. PT DENIES ANY NEEDS AT THIS TIME. CALL LIGHT IN REACH, FAMILY AT BEDSIDE, NAD NOTED, WILL CONTINUE TO MONITOR.
[2020-05-30 09:24] LABS: CKMB 152.7 U/L (0.0-3.6)
[2020-05-30 09:29] LABS: CREATINE KINASE 1454 UL (21-232)
[2020-05-30 09:30] LABS: TROPONIN-I 36.656 ng/mL (0.000-0.060)
--- NOTE | 2020-05-30 09:32 | NUR ---
NOTIFIED DR. BRUNO OF TROP OF 36.65.
--- NOTE | 2020-05-30 11:38 | NUR ---
40MEQ OF K GIVEN FOR LOW K OF 3.4.
--- NOTE | 2020-05-30 20:00 | NUR ---
INITIAL ROUNDS AND ASSESSMENT COMPLETED. RIGHT GROIN WITH DRESSING C/D/I. NO SWELLING OR BRUISING TO AREA. BP STILL RUNNING LOW, EVEN WITH NS @ 100ML/HR INFUSING TO LEFT A/C. PT DENIES FEELING ANY DIZZINESS AND STATES HE HAS BEEN UP TO BATHROOM WITH NO ISSUES. INSTRUCTED TO CALL FOR SUPERVISION SO THAT BP CAN BE MONITORED WHEN HE IS UP. PT VOICED UNDERSTANDING. CPOC.
--- NOTE | 2020-05-30 22:40 | NUR ---
RESTING IN BED WITH NO DISTRESS. FAMILY HAS BEEN VISITING AND PATIENT IS IN GOOD SPIRITS. SR/70 PER TELEMETRY. CPOC.
[2020-05-31] VITALS (8 sets, daily range): BP systolic 86–132; BP diastolic 48–84
[2020-05-31 06:02] LABS: BASOPHILS 0.3 % (0-2); EOSINOPHILS 1.5 % (0-7); HEMATOCRIT 33.8 % (42.0-54.0); HEMOGLOBIN 10.9 g/dL (13.5-17.5); LYMPHOCYTES 28.8 % (15-50); MCH 28.6 pg (26.0-34.0); MCHC 32.2 g/dL (31.0-37.0); MCV 88.7 fL (80.0-100.0); MEAN PLATELET VOLUME 9.9 fL (7.4-10.4); MONOCYTES 11.8 % (2-11); NEUTROPHILS 57.6 % (40-80); PLATELET COUNT 257 10x3/uL (130-400); RBC 3.81 10x6/uL (4.20-6.10); RDW 13.5 % (11.5-14.5)
[2020-05-31 06:21] LABS: ALBUMIN 2.7 g/dL (3.4-5.0); ALKALINE PHOSPHATASE 70 U/L (30-120); BILIRUBIN - TOTAL 0.21 mg/dL (0.2-1.3); CALCIUM 7.7 mg/dL (8.5-10.1); CARBON DIOXIDE 24.8 mmol/L (21.0-32.0); CHLORIDE - SERUM 110 mmol/L (98-107); CREATININE - SERUM 0.9 mg/dL (0.6-1.3); GLUCOSE 91 mg/dL (74-106); POTASSIUM - SERUM 4.2 mmol/L (3.5-5.1); SODIUM 142 mmol/L (136-145); eGFR NON AFRICAN AMERICAN > 90 mL/min (90-120)
[2020-05-31 06:35] LABS: ALT (SGPT) 54 U/L (10-68); CALC OSMOLALITY 280 mosm/kg (275-300); UREA NITROGEN 7 mg/dL (7-18)
[2020-05-31 10:07] LABS: CHOL - HDL RATIO 3.3 ratio (2.3-4.9); LDL-HDL RATIO 1.8 ratio (1.5-3.5)
--- NOTE | 2020-05-31 12:47 | NUR ---
SHOWER AND COMPLETE LINEN CHANGE DONE AT THIS TIME.
--- NOTE | 2020-05-31 13:00 | NUR ---
LT AC IV LEAKIMG. D/C IV WITH CATHETER TIP INTACT. NEW 20G IV STARTED TO RIGHT FA X1 STICK.
--- NOTE | 2020-05-31 20:15 | NUR ---
REPORT RECIEVED AND ROUNDING COMPLETE. PATIENT HAS FAMILY AT BEDSIDE, EXPLAINED AND REINFORMED TO PATIENT ABOUT NPO STATUS AFTER MIDNIGHT AND WHAT TO EXPECT. PATIENT HAS NO NEEDS AT THIS TIME, SHOWS NO S/SX OF DISTRESS AT THIS TIME. RIGHT FOREARM PIV WITH FLUIDS RUNNING. PATIENT IS ALERT AND ORIENTED. WILL BE STAYING WITH PATIENT THROUGH THE NIGHT CALL LIGHT WITHIN REACH AND BED IN LOWEST LOCKED POSITITON.
[2020-06-01 04:00] VITALS: BP 116/68
[2020-06-01 06:22] LABS: BASOPHILS 0.6 % (0-2); EOSINOPHILS 3.5 % (0-7); HEMATOCRIT 34.6 % (42.0-54.0); HEMOGLOBIN 11.2 g/dL (13.5-17.5); IMMATURE GRANULOCYTES 0.1 % (0-5); LYMPHOCYTES 28.6 % (15-50); MCH 28.4 pg (26.0-34.0); MCHC 32.4 g/dL (31.0-37.0); MCV 87.6 fL (80.0-100.0); MONOCYTES 9.2 % (2-11); PLATELET COUNT 279 10x3/uL (130-400); RBC 3.95 10x6/uL (4.20-6.10); RDW 13.1 % (11.5-14.5); WBC 6.9 10x3/uL (4.8-10.8)
[2020-06-01 06:42] LABS: ALBUMIN 2.9 g/dL (3.4-5.0); ALKALINE PHOSPHATASE 82 U/L (30-120); ALT (SGPT) 51 U/L (10-68); BILIRUBIN - TOTAL 0.14 mg/dL (0.2-1.3); CALC OSMOLALITY 276 mosm/kg (275-300); CALCIUM 7.8 mg/dL (8.5-10.1); CARBON DIOXIDE 23.7 mmol/L (21.0-32.0); CHLORIDE - SERUM 108 mmol/L (98-107); GLUCOSE 90 mg/dL (74-106); POTASSIUM - SERUM 3.7 mmol/L (3.5-5.1); PROTEIN - SERUM 6.3 g/dL (6.4-8.2); SODIUM 140 mmol/L (136-145); UREA NITROGEN 8 mg/dL (7-18); eGFR NON AFRICAN AMERICAN 84 mL/min (90-120)
[2020-06-01 07:50] VITALS: BP 112/65
--- NOTE | 2020-06-01 09:05 | NUR ---
PRE-OPS GIVEN. TO ENERGY AND CONSERVATION TECHNICIAN BY BED.
[2020-06-01 09:27] LABS: CHOL - HDL RATIO 3.3 ratio (2.3-4.9); LDL-HDL RATIO 1.9 ratio (1.5-3.5)
[2020-06-01] MEDS ORDERED: PLAVIX75 MG PO (09:52)
--- NOTE | 2020-06-01 10:15 | NUR ---
BACK FROM EVP BUSINESS DEVELOPMENT. VS WNL. LEFT GROIN STABLE WITHOUT BLEEDING OR HEMATOMA NOTED. WILL MONITOR.
--- NOTE | 2020-06-01 13:58 | NUR ---
BED REST UP. GROIN STABLE.
--- NOTE | 2020-06-01 15:35 | NUR ---
IV AND TELEMETRY DCD. DC PLANS GIVEN. UNDERSTANDING VOICED. ESCORTED TO CAR BY W/C.
--- NOTE | 2020-06-02 09:11 | OP ---
PATIENT NAME: EVENS MASTERS MEDICAL RECORD: [id number] :66 LOCATION:D.M2 D.2119 ADMISSION DATE:05/30/20 SURGEON: HALIE DIOR MD DATE OF OPERATION: 06/01/2020 PROCEDURE: Stent to LAD DESCRIPTION: A 6-Omani sheath placed in left femoral artery. XB LAD guiding catheter provided excellent guide support. This was followed by 300 cm [place] wire was placed across the 80% stenosis LAD down this portion of vessel. Stent deployed was a 3.5 x 18 mm [place] drug-eluting stent up to 14 atmospheres. Final angiography shows excellent resolution of 80% stenosis, no significant residual. MARYURI flow was 3 throughout the procedure. Heparin was used during the case. Sheath was closed with ExoSeal device. The patient was previously on Plavix. TRANSINT:[id number] Voice Confirmation ID: [id number] DOCUMENT ID: [id number] HALIE DIOR MD at 0911 CC: [id number] DICTATION DATE: 06/01/20 0944 MEAT SEAFOOD ASSOCIATE: 06/01/20 1403 DIS IN 06/01/20 [facility] [address] [place] [address]
== END 2020-06-01 15:35 | disposition home or self-care (01) | DRG 247 ==
LOC: D.ER 12:06 → OBSVTIME 15:05 → D.M2 15:05
PROVIDERS: Family Medicine; Internal Medicine Cardiovascular Disease; Internal Medicine Interventional Cardiology; ADMIT Emergency Medicine; ATTEND Emergency Medicine
PROC: 4A023N7 Measurement of Cardiac Sampling and Pressure, Left Heart, Percutaneous Approach (ICD-10-PCS; 2020-05-30)
PROC: B2111ZZ Fluoroscopy of Multiple Coronary Arteries using Low Osmolar Contrast (ICD-10-PCS; 2020-05-30)
PROC: B2151ZZ Fluoroscopy of Left Heart using Low Osmolar Contrast (ICD-10-PCS; 2020-05-30)
PROC: 5A1223Z Performance of Cardiac Pacing, Continuous (ICD-10-PCS; 2020-05-30)
PROC: 027034Z Dilation of Coronary Artery, One Artery with Drug-eluting Intraluminal Device, Percutaneous Approach (ICD-10-PCS; principal; 2020-05-30 02:15)
PROC: 027034Z Dilation of Coronary Artery, One Artery with Drug-eluting Intraluminal Device, Percutaneous Approach (ICD-10-PCS; 2020-06-01)
DX: I21.4 Non-ST elevation (NSTEMI) myocardial infarction (principal); N17.9 Acute kidney failure, unspecified; E87.1 Hypo-osmolality and hyponatremia; I95.1 Orthostatic hypotension; E78.5 Hyperlipidemia, unspecified; I10 Essential (primary) hypertension; K21.9 Gastro-esophageal reflux disease without esophagitis; E86.0 Dehydration; I25.10 Atherosclerotic heart disease of native coronary artery without angina pectoris